=== PATIENT | female | born 1980 | race Caucasian/White ===

== ENCOUNTER 2017-03-05 12:43 | Emergency (ER) | payer OTHER ==
[~2017-03-05] VITALS: Ht 165.1 cm; Wt 93.9 kg
[2017-03-05 13:15] LABS: BASO % 0 % (0-3); EOS # 0.2 x10^3/uL (0.0-0.7); EOS % 2 % (0-3); HEMATOCRIT 38.4 % (36.0-47.0); HEMOGLOBIN 13.1 g/dL (12.0-15.5); LYMPH # 3.4 x10^3/uL (1.0-4.8); LYMPH % 39 % (24-48); MEAN CORPUSCULAR HEMOGLOBIN 30 pg (25-35); MEAN CORPUSCULAR HGB CONC 34 g/dL (31-37); MEAN CORPUSCULAR VOLUME 88 fL (79-100); MONO # 0.5 x10^3/uL (0.0-1.1); MONO % 6 % (0-9); NEUT # 4.6 x10^3uL (1.8-7.7); NEUT % 53 % (31-73); PLATELET COUNT 185 x10^3/uL (140-400); RED BLOOD COUNT 4.37 x10^6/uL (3.50-5.40); RED CELL DISTRIBUTION WIDTH 13.4 % (11.5-14.5); WHITE BLOOD COUNT 8.8 x10^3/uL (4.0-11.0)
[2017-03-05 13:28] LABS: BACTERIA,URINE MOD /HPF (0-FEW); BILIRUBIN,URINE NEG (NEG); CLARITY,URINE HAZY; COLOR,URINE YELLOW; GLUCOSE,URINE NEG (NEG); NITRITE,URINE NEG (NEG); SQUAMOUS EPITHELIAL CELL,UR MOD /LPF; UROBILINOGEN,URINE 0.2 mg/dL (0.2 mg/dL)
[2017-03-05 13:30] LABS: ALBUMIN 3.8 g/dL (3.4-5.0); CALCIUM 8.9 mg/dL (8.5-10.1); CREATININE 0.8 mg/dL (0.6-1.0); GFR 82.1; POTASSIUM 3.4 mmol/L (3.5-5.1); TOTAL BILIRUBIN 0.3 mg/dL (0.2-1.0); TOTAL PROTEIN 7.5 g/dL (6.4-8.2)
--- NOTE | 2017-03-05 14:47 | RAD ---
Right upper quadrant abdominal ultrasound History: Right upper quadrant pain. Comparison: None. Technique: Transabdominal ultrasound images are obtained. Findings: Visualized pancreas is unremarkable. Liver is increased in echogenicity. No focal hepatic masses are identified. Right hepatic lobe is enlarged measuring 18.9 cm in length. Gallbladder has an unremarkable appearance. Common bile duct measures normally at 5 mm in diameter. The right kidney measures 11.3 cm in length and is without evidence of obstruction or stone. Visualized portions of the IVC have normal caliber. Impression: 1. Echogenic, enlarged liver, compatible with fatty liver disease. 2. Otherwise, unremarkable right upper quadrant abdominal ultrasound.
[2017-03-05 15:00] VITALS: BP 124/62
--- NOTE | 2017-03-05 18:02 | ED.ADGEN ---
Past History Past Medical History: Diabetes Past Surgical History: Hysterectomy Alcohol Use: None Drug Use: None Adult General Chief Complaint Chief Complaint Abdominal pain HPI HPI Patient is a 46-year-old female presents with right upper quadrant pain times one week. Pain is described as nonradiating, dull and low-grade it is currently rated 3 out of 10. It is worse with fast food and other greasy starchy foods. She also reports multiple episodes of diarrhea. History of biliary colic several years ago, but patient states she has not had problems in the past few years. Denies fever, chills, sweats, vomiting. Flank pain, hematuria dysuria. No other acute symptoms or complaints. Review of Systems Review of Systems Review of symptoms as per history of present illness. All other review symptoms are negative. Allergies Allergies Allergies Coded Allergies Type Severity Reaction Last Updated Verified prochlorperazine Allergy Mild Anxiety 03/05/17 Yes Physical Exam Physical Exam Constitutional: Well developed, well nourished, no acute distress, non-toxic appearance. HENT: Normocephalic, atraumatic, bilateral external ears normal, oropharynx moist, no oral exudates, nose normal. Eyes: PERRLA, EOMI, conjunctiva normal. Neck: Normal range of motion, no tenderness. Cardiovascular:Heart rate regular rhythm, no murmur. Lungs & Thorax: Bilateral breath sounds clear to auscultation. Abdomen: Bowel sounds normal, soft, pain, tenderness. No rebound rigidity or guarding. Negative Xiao signs. Negative McBurney sign. Skin: Warm, dry, no erythema, no rash Back: No tenderness, no CVA tenderness. Extremities: No tenderness. Neurologic: Alert and oriented X 3, normal motor function, normal sensory function, no focal deficits noted. Psychologic: Affect normal, judgement normal, mood normal. [] Current Patient Data Vital Signs Vital Signs Date Time Temp Pulse Resp B/P Pulse Ox O2 Delivery O2 Flow Rate FiO2 03/05/17 15:00 68 12 124/62 98 03/05/17 12:53 97.9 Room Air Lab Results Laboratory Tests Test 03/05/17 13:04 White Blood Count 8.8x10^3/uL (4.0-11.0) Red Blood Count 4.37x10^6/uL (3.50-5.40) Hemoglobin 13.1g/dL (12.0-15.5) Hematocrit 38.4% (36.0-47.0) Mean Corpuscular Volume 88fL (79-100) Mean Corpuscular Hemoglobin 30pg (25-35) Mean Corpuscular Hemoglobin Concent 34g/dL (31-37) Red Cell Distribution Width 13.4% (11.5-14.5) Platelet Count 185x10^3/uL (140-400) Neutrophils (%) (Auto) 53% (31-73) Lymphocytes (%) (Auto) 39% (24-48) Monocytes (%) (Auto) 6% (0-9) Eosinophils (%) (Auto) 2% (0-3) Basophils (%) (Auto) 0% (0-3) Neutrophils # (Auto) 4.6x10^3uL (1.8-7.7) Lymphocytes # (Auto) 3.4x10^3/uL (1.0-4.8) Monocytes # (Auto) 0.5x10^3/uL (0.0-1.1) Eosinophils # (Auto) 0.2x10^3/uL (0.0-0.7) Basophils # (Auto) 0.0x10^3/uL (0.0-0.2) Urine Collection Type Unknown Urine Color Yellow Urine Clarity Hazy Urine pH 5.5 Urine Specific [place] 1.020 Urine Protein Neg (NEG-TRACE) Urine Glucose (UA) Negmg/dL (NEG) Urine Ketones (Stick) 15mg/dL (NEG) Urine Blood Trace (NEG) Urine Nitrite Neg (NEG) Urine Bilirubin Neg (NEG) Urine Urobilinogen Dipstick 0.2mg/dL (0.2 mg/dL) Urine Leukocyte Esterase Neg (NEG) Urine RBC 1-2/HPF (0-2) Urine WBC 1-4/HPF (0-4) Urine Squamous Epithelial Cells Mod/LPF Urine Bacteria Mod/HPF (0-FEW) Urine Mucus Mod/LPF Sodium Level 141mmol/L (136-145) Potassium Level 3.4mmol/L (3.5-5.1) L Chloride Level 106mmol/L (98-107) Carbon Dioxide Level 25mmol/L (21-32) Anion Gap 10 (6-14) Blood Urea Nitrogen 12mg/dL (7-20) Creatinine 0.8mg/dL (0.6-1.0) Estimated GFR (Cockcroft-Gault) 82.1 BUN/Creatinine Ratio 15 (6-20) Glucose Level 92mg/dL (70-99) Calcium Level 8.9mg/dL (8.5-10.1) Total Bilirubin 0.3mg/dL (0.2-1.0) Aspartate Amino Transferase (AST) 19U/L (15-37) Alanine Aminotransferase (ALT) 26U/L (14-59) Alkaline Phosphatase 67U/L (46-116) Total Protein 7.5g/dL (6.4-8.2) Albumin 3.8g/dL (3.4-5.0) Albumin/Globulin Ratio 1.0 (1.0-1.7) Lipase 111U/L (73-393) EKG EKG [] Radiology/Procedures Radiology/Procedures [Right Upper quadrant ultrasound: No acute pathology per radiology report] Impressions: Upper abdominal pain with diarrhea.. Course & Med Decision Making Course & Med Decision Making Pertinent Labs and Imaging studies reviewed. (See chart for details) [ Labs and ultrasound reviewed. No acute findings. Abdomen soft, nonsurgical. No lower abdominal pain or tenderness. Will treat supportively at home with watchful waiting and close PCP follow-up. Return precautions reviewed. Verbalizes understanding and agreement discharge instructions prior to departure.] Final Impression Final Impression [1. Abdominal pain 2. Nausea and vomiting] Problems: Dragon Disclaimer Dragon Disclaimer This electronic medical record was generated, in whole or in part, using a voice recognition dictation system. ANTOINE BURRELL DO Mar 05, 2017 18:02
== END 2017-03-05 15:10 | disposition home or self-care (01) ==
LOC: ER 12:43
DX: R10.11 Right upper quadrant pain (principal); R11.2 Nausea with vomiting, unspecified; E11.9 Type 2 diabetes mellitus without complications; Z88.8 Allergy status to other drugs, medicaments and biological substances
CPT/HCPCS: 36415; 76705; 80053; 81001; 83690; 85027; 87086; 99285-25

== ENCOUNTER 2017-07-07 13:42 | Emergency (ER) | payer OTHER ==
[2017-07-07] MEDS ORDERED: IPRATRPIUM/ALBUTEROL 0.5/2.5MG 3 ML NEBU. ONE (13:55)
[2017-07-07] MEDS ORDERED: IPRATRPIUM/ALBUTEROL 0.5/2.5MG 3 ML NEBU. NEB ONE (14:00)
[2017-07-07 14:47] VITALS: BP 135/68
--- NOTE | 2017-07-07 14:48 | RAD ---
CHEST PA LATERAL History:Shortness of air, asthma Comparison: None Findings:2 PA views and single lateral view of the chest are submitted. There is no lobar infiltrate, pleural fluid, pneumothorax. Heart size is within normal limits. Impression: 1.No acute abnormality is identified.
[2017-07-07] MEDS ORDERED: PRED20TA PO (14:55)
--- NOTE | 2017-07-07 14:55 | PHYS DOC ---
Past History Past Medical History: Diabetes Past Surgical History: Hysterectomy Alcohol Use: None Drug Use: None Adult General Chief Complaint Chief Complaint: SHORTNESS OF BREATH HPI HPI Patient is a 36-year-old female with a history of asthma who presents complaining of increased shortness of breath and chest tightness for 2 days. She has used her albuterol inhaler and has not had good relief from that. She does not have frequent asthma exacerbations. This one reminds her of when she was a kid. She has had some seasonal allergy symptoms. She has had a dry cough. No fever or chills. Patient has had a hysterectomy. Patient had gallbladder surgery a couple of months ago. She's been doing well since. PCP on post Review of Systems Review of Systems Constitutional: Denies fever or chills [] HENT: She has had some nasal congestion Respiratory: As in history of present illness : Status post hysterectomy, she does not have periods Current Medications Current Medications Current Medications Medications (Trade) Dose Ordered Sig/Blanca Start Time Stop Time Status Last Admin Dose Admin Albuterol/ Ipratropium (Duoneb) 3 ml STK-MED ONCE 07/07/17 13:55 07/07/17 13:56 DC Allergies Allergies Allergies Coded Allergies Type Severity Reaction Last Updated Verified prochlorperazine Allergy Mild Anxiety 03/05/17 Yes Physical Exam Physical Exam Constitutional: Well developed, well nourished, no acute distress, non-toxic appearance. Alert, mentating normally, warm and dry, speaks full sentences immediately after ambulating back from the waiting room. Pulse ox on room air 98 -99%. HENT: Normocephalic, atraumatic, bilateral external ears normal, oropharynx moist, no oral exudates, nose normal. [] Eyes: conjunctiva normal, no discharge. [] Neck: Normal range of motion, no stridor. [] Cardiovascular:Heart rate regular rhythm, no murmur , nontachycardic Lungs & Thorax: Bilateral breath sounds clear to auscultation with good air movement throughout and no wheezes, mild prolongation of expiratory phase. Skin: Warm, dry, no erythema, no rash. [] Extremities: No tenderness, no cyanosis, no clubbing, ROM intact, no edema. [] Neurologic: Alert and oriented X 3, normal motor function, normal sensory function, no focal deficits noted. [] Current Patient Data Vital Signs Vital Signs Date Time Temp Pulse Resp B/P (MAP) Pulse Ox O2 Delivery O2 Flow Rate FiO2 07/07/17 13:59 98 Room Air EKG EKG [] Radiology/Procedures Radiology/Procedures Two-view chest x-ray read by the radiologist. No acute abnormalities. [] Course & Med Decision Making Course & Med Decision Making Pertinent Labs and Imaging studies reviewed. (See chart for details) 36-year-old female with a history of asthma presents with chest tightness and feeling like her asthma is bothering her. Objectively, she does not appear dyspneic, pulse ox on room air 98%, she is ambulatory without difficulty, no wheezes on lung exam. She was given a nebulized DuoNeb treatment and states that she felt a little better but her chest still felt tight. Therefore chest x- ray was done which is normal. I believe she is stable for discharge and we will put her on a 5 day course of prednisone. Discussed this with the patient who is comfortable with the plan. [] Dragon Disclaimer Dragon Disclaimer This chart was dictated in whole or in part using Voice Recognition software in a busy, high-work load, and often noisy Emergency Department environment. It may contain unintended and wholly unrecognized errors or omissions. Departure Departure: Impression: Primary Impression: Asthma exacerbation Disposition: HOME, SELF-CARE Condition: IMPROVED Referrals: MARTY CHANEL MD (PCP) Patient Instructions: Asthma Attacks, Prevention, Asthma, Adult, [id number] Additional Instructions: Continue to use your inhaler every 4 hours until better. Prednisone as directed. If not improving by Sunday, see your doctor. If worse, return to emergency. Scripts Albuterol Sulfate (PROAIR HFA INHALER) 8.5 Gm Hfa.aer.ad 1 PUFF INH PRN Q6HRS Y for SHORTNESS OF BREATH, #1 INHALER 0 Refills Prov: ANN-MARIE ABBOTT MD 07/07/17 Prednisone (PREDNISONE) 20 Mg Tablet 1 TAB PO BID, #10 TAB Prov: ANN-MARIE ABBOTT MD 07/07/17 ANN-MARIE ABBOTT MD Jul 07, 2017 14:55
[2017-07-07] MEDS ORDERED: ALBU8.5H8 INH (15:00)
[2017-07-07] MEDS ORDERED: predniSONE 20 MG TABLET PO ONE (15:25)
== END 2017-07-07 15:05 | disposition home or self-care (01) ==
LOC: ER 13:42
DX: J45.901 Unspecified asthma with (acute) exacerbation (principal); E11.9 Type 2 diabetes mellitus without complications; Z88.8 Allergy status to other drugs, medicaments and biological substances
CPT/HCPCS: 71020; 94640; 99284; J7512; J7620